=== PATIENT | female | born 1965 | race Caucasian/White ===

== ENCOUNTER 2020-04-12 14:59 | Outpatient (CLI) | payer OTHER, SELFPAY ==
--- NOTE | ~2020-04-12 | US_ITS ---
EXAMINATION: US retroperitoneal comp DATE: 04/12/2020 14:37 INDICATION: Nephrolithiasis TECHNIQUE: Multiple ultrasound grayscale images of the kidneys were obtained. COMPARISON: None. FINDINGS: The right kidney measures 10.2 x 4.0 x 5.0 cm. The left kidney measures 10.1 x 5.0 x 4.4 cm. The kidn eys demonstrate normal echogenicity. There is no hydronephrosis in either kidney. No stones identifi ed. The bladder is normal. IMPRESSION: 1. Normal kidneys without hydronephrosis. Reviewed, dictated and finalized at location B. CONTROLMAN
--- NOTE | ~2020-04-12 | XR_ITS ---
EXAMINATION: XR abdomen/kub 1V DATE: 04/12/2020 14:31 INDICATION: Right-sided nephrolithiasis TECHNIQUE: A supine view of the abdomen on 2 radiographs was obtained. COMPARISON: 01/10/2013 FINDINGS: Cholecystectomy clips in right upper quadrant. Couple unchanged phleboliths in the right hemipelvis. No other calcifications in the abdomen or pelvis suspicious for urolithiasis. No dilated loops of gas -filled bowel to suggest obstruction. Bones are unremarkable. IMPRESSION: 1. No evident nephrolithiasis. Reviewed, dictated and finalized at location B. 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
--- NOTE | ~2020-04-12 | MM_ITS ---
EXAMINATION: MM screening saeed BI w celine HISTORY: Screening TECHNIQUE: Craniocaudal and mediolateral oblique 3-D tomosynthesis images were obtained and synthetic 2-D images were generated. CAD analysis was submitted and interpreted. COMPARISON: No prior mammogram is available for comparison at this institution. BREAST PARENCHYMAL COMPOSITION: 10/05/2015 FINDINGS: There is no evidence of suspicious mass, calcification, or architectural distortion to sugg est malignancy in either breast. There has been no suspicious interval change. IMPRESSION: 1. No mammographic evidence of malignancy. 2. Recommend routine screening mammography in one year. BI-RADS Category 1: Negative Reviewed, dictated and finalized at location A. 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
== END 2020-04-12 15:00 | disposition home or self-care (01) ==
LOC: ANHIMG 15:00
PROVIDERS: Family Provider Family Medicine; PCP Family Medicine; Visit Provider Family Medicine
DX: Z12.31 Encounter for screening mammogram for malignant neoplasm of breast (principal); Z87.442 Personal history of urinary calculi
CPT/HCPCS: 74018; 76770; 77063; 77067

== ENCOUNTER 2020-10-04 07:43 | Outpatient (CLI) | payer OTHER, SELFPAY ==
[2020-10-04 08:20] LABS: Alanine Aminotransferase 16 U/L (4-35); Albumin Level 4.5 g/dL (3.5-5.1); Alkaline Phosphatase 49 U/L (38-126); Anion Gap 8 mmol/L (8-16); Aspartate Amino Transferase 24 U/L (14-36); Bilirubin,Total 0.4 mg/dL (0.2-1.3); Blood Urea Nitrogen 16 mg/dL (7-17); Calcium 9.7 mg/dL (8.4-10.2); Carbon Dioxide 27 mmol/L (22-30); Chloride 105 mmol/L (98-107); Estimated Glomerular Filt Rate > 60; Glucose 88 mg/dL (65-110); Potassium 4.4 mmol/L (3.4-5.0); Sodium 140 mmol/L (137-145)
--- NOTE | 2020-10-04 08:40 | ECHO_ITS ---
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 Summary 1. Complete two-dimensional, color flow and Doppler transthoracic echocardiogram is performed. 2. Left ventricular chamber dimension is normal. 3. Left ventricular systolic function is normal, estimated at 60-65%. 4. The left ventricular diastolic function is normal. 5. E/e' 9 is minimally elevated. 6. No pulmonary hypertension, estimated pulmonary arterial systolic pressure is 19 mmHg. Left Ventricle E/e' 9 is minimally elevated. Left ventricular chamber dimension is normal. Left ventricular systolic function is normal, estimated at 60-65%. The left ventricular diastolic function is normal. Right Ventricle Right ventricular chamber dimension is normal. Right ventricular systolic function is normal. Left Atria Left atrial chamber dimension is normal. Right Atria Right atrial chamber dimension is normal. Aortic Valve The aortic valve is trileaflet. There is no aortic valve stenosis. There is no aortic valve regurgitation. Pulmonic Valve There is no pulmonic regurgitation. Mitral Valve There is no mitral valve stenosis. There is no mitral valve regurgitation. Tricuspid Valve There is no tricuspid valve regurgitation. No pulmonary hypertension, estimated pulmonary arterial systolic pressure is 19 mmHg. Pericardium/Pleural There is no pericardial effusion. Inferior Vena Cava Normal inferior vena cava with >50% collapse upon inspiration consistent with normal right atrial pressure, 5 mmHg. Aorta The aortic root size at the sinus of Valsalva is normal. Left Ventricular Outflow Tract Name Value Normal LVOT 2D LVOT Diameter 2.0 cm LVOT Doppler LVOT Peak Gradient 6 mmHg LVOT Mean Gradient 3 mmHg LVOT VTI 27 cm LVOT VTI/AV VTI Ratio 1.1 LVOT Stroke Volume 85 ml LVOT CO 17.0 l/min LVOT CI 10.3 l/min/m2 Pulmonic Valve Name Value Normal PV Doppler PV Peak Gradient 3 mmHg Mitral Valve Name
[2020-10-04 09:36] LABS: Hepatitis C Virus Antibody Negative (Negative)
== END 2020-10-04 07:44 | disposition home or self-care (01) ==
PROVIDERS: PCP Family Medicine; Visit Provider Family Medicine
DX: R01.1 Cardiac murmur, unspecified (principal); I10 Essential (primary) hypertension; E06.3 Autoimmune thyroiditis
CPT/HCPCS: 36415; 80053; 84443; 86803; 93306

== ENCOUNTER 2022-02-13 08:48 | Outpatient (CLI) | payer OTHER, SELFPAY ==
[2022-02-13 09:33] LABS: Alanine Aminotransferase 18 U/L (6-35); Albumin Level 4.6 g/dL (3.5-5.1); Alkaline Phosphatase 47 U/L (38-126); Anion Gap 7 mmol/L (8-16); Aspartate Amino Transferase 24 U/L (14-36); Bilirubin,Total 0.4 mg/dL (0.2-1.3); Blood Urea Nitrogen 25 mg/dL (7-17); Calcium 9.3 mg/dL (8.4-10.2); Carbon Dioxide 29 mmol/L (22-30); Chloride 103 mmol/L (98-107); Cholesterol 181 mg/dL (0-200); Estimated Glomerular Filt Rate > 60; Glucose 96 mg/dL (65-110); HDL Direct 55 mg/dL; Potassium 4.6 mmol/L (3.4-5.0); Sodium 139 mmol/L (137-145); Triglycerides 54 mg/dL (<150)
[2022-02-13 09:44] LABS: LDL Cholesterol Direct 80 mg/dL
== END 2022-02-13 08:49 | disposition home or self-care (01) ==
PROVIDERS: PCP Family Medicine; Visit Provider Family Medicine
DX: I10 Essential (primary) hypertension (principal)
CPT/HCPCS: 36415; 80053; 80061; 84443

== ENCOUNTER 2022-07-20 01:11 | Day surgery (SDC) | payer OTHER, SELFPAY ==
[2022-07-06 15:28] VITALS: BMI 25.8
[2022-07-20 06:32] VITALS: BP 105/74; PULSE 68; RESP 18; TEMP 36.7; O2SAT 98; BMI 24.7
[2022-07-20] MEDS: LACTATED RINGERS 1,000 ML 150 ML IV CONT (06:41)
--- NOTE | 2022-07-20 07:22 | WPDANESEPPF ---
Anes - Initial Pre Proc Eval Procedure: Operation Date: 07/20/22 07:30 Proposed Procedures p Screening Colonoscopy - Jose Ramon Gottlieb MD Date/Time: 07/20/22 07:22 Surgeon: Jose Ramon Gottlieb MD Pre Op Diagnosis: neoplasm screening Patient Data Age: 56 Gender: F Height: 1.57 m Weight: 61.3 kg Last Vital Signs Temp 98.0 F 07/20/22 06:32 Pulse 68 07/20/22 06:32 Resp 18 07/20/22 06:32 BP 105/74 07/20/22 06:32 Pulse Ox 98 07/20/22 06:32 O2 Del Method Room Air 07/20/22 06:32 Allergies Allergy/AdvReac Type Severity Reaction Status Date / Time ciprofloxacin Allergy Unknown Skin Verified 07/20/22 06:30 Reaction Penicillins Allergy Unknown Skin Verified 07/20/22 06:30 Reaction povidone-iodine Allergy Rash Verified 07/20/22 06:30 [From Betadine] FORMALDYHYDE Allergy Unknown RASH Uncoded 07/20/22 06:30 PRESERVATIVE-ETHYL Allergy Unknown RASH Uncoded 07/20/22 06:30 ENEDIAMINE DYHYD Home Medications Medication Instructions Recorded Confirmed Type triamcinolone acetonide 0.1 % 1 applic topical BID PRN rash 09/29/19 07/20/22 Rx topical cream #453.6 grams estradiol 0.87 gram/actuation 1 pump transdermal DAILY #52 grams 03/28/21 07/20/22 Rx (0.06%) transdermal gel pump (Elestrin) fluticasone furoate 100 1 inh inhalation DAILY #180 ea 04/10/21 07/20/22 Rx mcg-vilanterol 25 mcg/dose inhalation powder (Breo Ellipta) montelukast 10 mg tablet 10 mg PO DAILY #90 tabs 07/18/21 07/20/22 Rx doxepin 10 mg capsule See Rx Instructions .Route 08/14/21 07/20/22 Rx .COMPLEX #90 caps levothyroxine 75 mcg tablet See Rx Instructions .Route 08/14/21 07/20/22 Rx .COMPLEX #90 tabs lisinopril 10 mg tablet See Rx Instructions .Route 08/14/21 07/20/22 Rx .COMPLEX #90 tabs Patient hx anesthesia problems: none Family hx anesthesia problems: none Results Review: All pre-operative results and documents have been reviewed as part of the pre-operative evaluation. [facility], LAT[facility] Surgical History Surgical History H/O: hysterectomy Family History Family History Mother Cerebrovascular accident Family history of thyroid disease Family history of glaucoma Family history of elevated blood lipids Father Family history of lymphoma Social History Social History Smoking status: Never smoker Alcohol intake: never Substance use: never Substance use type: does not use Living arrangements: with family Spiritual care concerns: No Anes - Eval Final PreProcedure Day of Procedure 07/20/22 07:22 Patient weight: normal Heart: regular rate and rhythm Lungs: clear to auscultation Airway: Mallampati scale class II Neurological: alert and oriented Last oral intake: >/= 8 hours ASA classification: II Emergent: no Anesthetic plan: proceed Anesthesia type and monitoring: general GIVS and standard monitoring Results Review: All pre-operative results and documents have been reviewed as part of the pre-operative evaluation. Informed Consent: The patient's anesthetic plan and its attendant risks and benefits were discussed with the patient/family/POA. Questions were solicited and answers provided to the satisfaction of the patient/family/POA.
--- NOTE | 2022-07-20 07:26 | PM.HPGS ---
History of Present Illness History of Present Illness Consent: Risks, benefits, and alternatives have been discussed and questions answered. Patient agrees to proceed with procedure. Chief complaint: neoplasm screening Narrative: Lilibeth Dickson is a 56 year old female Presents for screening colonoscopy. Patient's current weight appetite and bowel movements are normal. Patient denies abdominal pain. She has had no bleeding. Family history noncontributory. Review of Systems Review of Systems: Review of systems noncontributory. REPLACED BY [facility] Surgical History Surgical History H/O: hysterectomy Family History Family History Mother Cerebrovascular accident Family history of thyroid disease Family history of glaucoma Family history of elevated blood lipids Father Family history of lymphoma Social History Social History Smoking status: Never smoker Alcohol intake: never Substance use: never Substance use type: does not use Living arrangements: with family Spiritual care concerns: No Meds Home Medications and Allergies Home Medications Medication Instructions Recorded Confirmed Type triamcinolone acetonide 0.1 % 1 applic topical BID PRN rash 09/29/19 07/20/22 Rx topical cream #453.6 grams estradiol 0.87 gram/actuation 1 pump transdermal DAILY #52 grams 03/28/21 07/20/22 Rx (0.06%) transdermal gel pump (Elestrin) fluticasone furoate 100 1 inh inhalation DAILY #180 ea 04/10/21 07/20/22 Rx mcg-vilanterol 25 mcg/dose inhalation powder (Breo Ellipta) montelukast 10 mg tablet 10 mg PO DAILY #90 tabs 07/18/21 07/20/22 Rx doxepin 10 mg capsule See Rx Instructions .Route 08/14/21 07/20/22 Rx .COMPLEX #90 caps levothyroxine 75 mcg tablet See Rx Instructions .Route 08/14/21 07/20/22 Rx .COMPLEX #90 tabs lisinopril 10 mg tablet See Rx Instructions .Route 08/14/21 07/20/22 Rx .COMPLEX #90 tabs Allergies Allergy/AdvReac Type Severity Reaction Status Date / Time ciprofloxacin Allergy Unknown Skin Verified 07/20/22 06:30 Reaction Penicillins Allergy Unknown Skin Verified 07/20/22 06:30 Reaction povidone-iodine Allergy Rash Verified 07/20/22 06:30 [From Betadine] FORMALDYHYDE Allergy Unknown RASH Uncoded 07/20/22 06:30 PRESERVATIVE-ETHYL Allergy Unknown RASH Uncoded 07/20/22 06:30 ENEDIAMINE DYHYD Vital Signs Vital Signs - 24 hr 07/20/22 06:32 Temperature 98.0 F Pulse Rate 68 Respiratory Rate 18 Blood Pressure 105/74 Pulse Oximetry 98 Oxygen Delivery Room Air Exam Narrative: Physical exam reveals patient to be alert. Vital signs stable. HEENT exam is unremarkable. Patient is anicteric. Lungs are clear to auscultation and percussion. Heart is without murmur or extra sounds. Abdomen bowel sounds are present soft nontender with no organomegaly. Digital external rectal exam is normal. Assessment and Plan Assessment and plan (1) Encounter for screening colonoscopy: Code(s): Z12.11 - Encounter for screening for malignant neoplasm of colon Status: Acute Assessment and Plan: Patient presents today for screening colonoscopy. Further recommendations may be given after endoscopy.
[2022-07-20 07:44] VITALS: BP 104/69; PULSE 71; RESP 19; O2SAT 94
[2022-07-20 07:54] VITALS: BP 109/76; PULSE 70; RESP 19; O2SAT 98
[2022-07-20 08:04] VITALS: BP 115/80; PULSE 65; RESP 16; O2SAT 98
== END 2022-07-20 08:20 | disposition home or self-care (01) ==
PROVIDERS: PCP Family Medicine; Visit Provider Internal Medicine Gastroenterology
PROC: 0DJD8ZZ Inspection of Lower Intestinal Tract, Via Natural or Artificial Opening Endoscopic (ICD-10-PCS; CPT 45378; principal; 2022-07-20 07:30)
DX: Z12.11 Encounter for screening for malignant neoplasm of colon (principal); K57.30 Diverticulosis of large intestine without perforation or abscess without bleeding; Z79.51 Long term (current) use of inhaled steroids
CPT/HCPCS: 45378; J2704; J7120

== ENCOUNTER 2023-01-29 08:31 | Outpatient (CLI) | payer OTHER, SELFPAY | END 2023-01-29 08:32 | disposition home or self-care (01) | LOC: ANHLAB 08:34 | PROVIDERS: PCP Family Medicine; Visit Provider Family Medicine | DX: E06.3 Autoimmune thyroiditis (principal) | CPT/HCPCS: 36415; 84443 ==

== ENCOUNTER 2023-05-24 14:35 | Outpatient (CLI) | payer OTHER, SELFPAY ==
--- NOTE | ~2023-05-24 | MM_ITS ---
CORRECTED REPORT corrected examination description [facility] 05/25/23 This report was recreated on 05/25/23. Original report was INATION: MM screening mammo BI w celine HISTORY: Screening mammogram TECHNIQUE: Craniocaudal and mediolateral oblique 3-D tomosynthesis images were obtained and synthetic 2-D images were generated. CAD analysis was submitted and interpreted. COMPARISON: Serial mammograms screening studies dating back to 10/05/2015 BREAST PARENCHYMAL COMPOSITION: There are scattered areas of fibroglandular density. FINDINGS: There is no evidence of suspicious mass, calcification, or architectural distortion to suggest malignancy in either breast. There has been no suspicious interval change. IMPRESSION: 1. No mammographic evidence of malignancy. 2. Recommend routine screening mammography in one year. BI-RADS Category 1: Negative Reviewed, dictated and finalized at location A. MTDD
== END 2023-05-24 14:36 | disposition home or self-care (01) ==
LOC: ANHIMG 14:39
PROVIDERS: PCP Family Medicine; Visit Provider Family Medicine
DX: Z12.31 Encounter for screening mammogram for malignant neoplasm of breast (principal)
CPT/HCPCS: 77063; 77067

== ENCOUNTER 2023-09-22 07:09 | Outpatient (CLI) | payer OTHER, SELFPAY ==
[2023-09-22 10:52] LABS: Alanine Aminotransferase 17 U/L (6-35); Albumin Level 4.7 g/dL (3.5-5.1); Alkaline Phosphatase 52 U/L (38-126); Anion Gap 10 mmol/L (4-12); Aspartate Amino Transferase 25 U/L (14-36); Bilirubin,Total 0.3 mg/dL (0.2-1.3); Blood Urea Nitrogen 17 mg/dL (7-17); Calcium 9.4 mg/dL (8.4-10.2); Carbon Dioxide 29 mmol/L (22-30); Chloride 102 mmol/L (98-107); Estimated Glomerular Filt Rate > 60; Glucose 92 mg/dL (65-110); Potassium 4.3 mmol/L (3.4-5.0); Sodium 141 mmol/L (137-145)
== END 2023-09-22 07:10 | disposition home or self-care (01) ==
LOC: ANHLAB 07:11
PROVIDERS: PCP Family Medicine; Visit Provider Family Medicine
DX: E03.9 Hypothyroidism, unspecified (principal); I10 Essential (primary) hypertension
CPT/HCPCS: 36415; 80053; 84443

== ENCOUNTER 2024-10-09 15:15 | Outpatient (CLI) | payer OTHER, SELFPAY ==
--- NOTE | ~2024-10-09 | XR_ITS ---
XR lumbar spine min 4V 10/09/2024 15:46 Indication: Back pain Procedure: 5 views lumbar spine Comparison: No prior studies for comparison. Findings: Vertebral body heights are maintained. There is disc narrowing at all lumbar levels. There is reversal of normal lumbar lordosis. No evidence for spondylolisthesis. There is facet hypertrophy at L4-5 and L5-S1. No acute fracture or traumatic malalignment. Impression: 1: Moderate lumbar spondylosis. Reviewed, dictated and finalized at location A. Impression: 1: Moderate lumbar spondylosis.
== END 2024-10-09 15:16 | disposition home or self-care (01) ==
PROVIDERS: PCP Family Medicine; Visit Provider Family Medicine
DX: M43.06 Spondylolysis, lumbar region (principal)
CPT/HCPCS: 72110

== ENCOUNTER 2024-10-20 08:15 | Outpatient (CLI) | payer OTHER, SELFPAY ==
--- OUTSIDE RECORDS SUMMARY | 2024-10-20 08:17 | XMS_ITS | Clinical Summary ---
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 Gender Identity Not on file Sexual Orientation Not on file Plan of Treatment Health Maintenance Due Date Last Done Comments Cervical Cancer Screening Pa p Smear (Age 30 to 64) Every 3 Years 1965 Colorectal Cancer Screening Colonoscopy (10 Years) 1965 Annual Physical 08/10/1966 Hepatitis C 08/10/1981 DTaP, Tdap and Td Vaccines ( 1 - Tdap) 08/10/1982 Cervical Cancer Screening Pa p with HPV Testing (Age 30 to 64) Every 5 Years 08/10/1993 Cervical Cancer Screening with HPV 08/10/1993 Mammogram Screening 2003 Pneumococcal Vaccine: 50+ Ye ars (1 of 1 - PCV) 08/10/2013 Zoster Vaccines (1 of 2) 08/10/2013 COVID-19 Vaccine (2023-2 5 season) 2023 RSV Immunization or 60+ Years (1 - 1-dose 75+ series) 08/10/2038 Meningococcal B Vaccine Aged Out No l onger eligible based on patient's age to complete this topic Meningococcal Vaccine Aged Out No lizzeth fabiana eligible based on patient's age to complete this topic RSV Immunizations Under 20 Months Aged Out No longer eligible based on patient's age to complete this topic
[2024-10-20 09:46] LABS: Alanine Aminotransferase 20 U/L (6-35); Albumin Level 4.6 g/dL (3.5-5.1); Alkaline Phosphatase 49 U/L (38-126); Anion Gap 10 mmol/L (4-12); Aspartate Amino Transferase 26 U/L (14-36); Bilirubin,Total 0.3 mg/dL (0.2-1.3); Blood Urea Nitrogen 16 mg/dL (7-17); Calcium 9.6 mg/dL (8.4-10.2); Carbon Dioxide 28 mmol/L (22-30); Chloride 103 mmol/L (98-107); Estimated Glomerular Filt Rate > 60; Glucose 96 mg/dL (65-110); Potassium 4.2 mmol/L (3.4-5.0); Sodium 141 mmol/L (137-145); Total Protein 7.8 g/dL (6.3-8.2)
[2024-10-20 10:21] LABS: Thyroid Stimulating Hormone 2.550 uIU/mL (0.465-4.680)
== END 2024-10-20 08:16 | disposition home or self-care (01) ==
LOC: ANHLAB 08:16
PROVIDERS: PCP Family Medicine; Visit Provider Family Medicine
DX: E03.9 Hypothyroidism, unspecified (principal); I10 Essential (primary) hypertension
CPT/HCPCS: 36415; 80053; 84443